=== PATIENT | female | born 1980 | race Caucasian/White ===

== ENCOUNTER 2023-09-06 15:19 | Emergency (ER) | payer BC ==
[~2023-09-06] VITALS: Ht 172.7 cm; Wt 61.4 kg
[~2023-09-06 15:19] MED LIST: CEFTIN250 MG PO; NO HOME MEDICATIONS; PYRIDIUM 100MG100 MG PO
[2023-09-06 16:45] LABS: BASO % 0.1 % (0.0-2.0); EOS % 0.1 % (0.0-4.0); GRAN # 7.1 K/mm3 (1.4-6.5); GRAN % 77.3 % (42.2-75.2); HEMATOCRIT 46.1 % (37.0-47.0); LYMPH # 1.5 K/mm3 (1.2-3.4); LYMPH % 15.8 % (20.0-51.0); MEAN CELL VOLUME 94 fl (80.0-100.0); MEAN CORPUSCULAR HEMOGLOBIN 33 pg (27-31); MEAN CORPUSCULAR HGB CONC 35 g/dl (33.0-37.0); MEAN PLATELET VOLUME 9.3 fl (7.4-10.4); MONO # 0.6 K/mm3 (0.1-0.6); MONO % 6.2 % (1.7-9.3); PLATELET COUNT 356 K/mm3 (130-400); RED BLOOD COUNT 4.89 M/mm3 (4.10-5.30); REDCELL DISTRIBUTION WIDTH-CV 11.4 % (11.5-14.5)
[2023-09-06 17:06] LABS: ALBUMIN 4.3 gm/dL (3.5-5.0); BILIRUBIN,TOTAL 0.7 mg/dL (0.2-1.2); CALCIUM 9.7 mg/dL (8.4-10.2); CREATININE, serum 0.73 mg/dL (0.57-1.11); POTASSIUM 3.8 mmol/L (3.5-4.5); TOTAL PROTEIN 7.3 gm/dL (6.2-8.1)
[2023-09-06] MEDS ORDERED: FIORICET 325 MG1 TA1 PO (18:03)
[2023-09-06] MEDS ORDERED: ZOFRAN 4MG T4 MG/TAB PO (18:08)
[2023-09-06 18:36] VITALS: BP 134/94; PULSE 64; TEMP 98.3
== END 2023-09-06 18:36 | disposition home or self-care (01) ==
LOC: COL.ER 15:19
PROVIDERS: Physician Assistant
DX: G97.1 Other reaction to spinal and lumbar puncture (principal); C50.919 Malignant neoplasm of unspecified site of unspecified female breast; C79.31 Secondary malignant neoplasm of brain; C79.49 Secondary malignant neoplasm of other parts of nervous system; F17.200 Nicotine dependence, unspecified, uncomplicated; Z79.899 Other long term (current) drug therapy; Z91.040 Latex allergy status; Z88.6 Allergy status to analgesic agent
CPT/HCPCS: J1200; J1885; J2405; J7030